=== PATIENT | male | born 1945 | race Caucasian/White ===

== ENCOUNTER → 2016-10-10 | Outpatient (CLI) | payer MEDICARE, OTHER ==
--- NOTE | 2016-10-11 07:30 | RAD ---
EXAM DESCRIPTION: XR CHEST 2 VIEWS CLINICAL HISTORY: Shortness of breath COMPARISON: 09/25/2012 TECHNIQUE: PA/lateral FINDINGS: Normal heart size. Cardiac surgery. Tortuous aorta. No pulmonary edema, infiltrates or effusions IMPRESSION: No acute cardiopulmonary process. Electronically signed by: Aries Jesus MD 10/11/2016 7:30 AM CDT
== END | disposition home or self-care (01) ==
LOC: RAD 11:06
PROVIDERS: ATTEND Internal Medicine
DX: R06.02 Shortness of breath (principal)

== ENCOUNTER → 2016-12-27 | Outpatient (CLI) | payer MEDICARE, OTHER | LOC: YCFC.O 10:01 | PROVIDERS: ATTEND Nurse Practitioner Family | DX: E11.9 Type 2 diabetes mellitus without complications (principal); E78.2 Mixed hyperlipidemia; I25.812 Atherosclerosis of bypass graft of coronary artery of transplanted heart without angina pectoris; Z12.5 Encounter for screening for malignant neoplasm of prostate | CPT/HCPCS: 36415; 80053; 80061; 83036; 85025; G0103 ==

== ENCOUNTER → 2017-02-10 | Outpatient (CLI) | payer MEDICARE, OTHER ==
--- NOTE | 2017-02-11 20:48 | RAD ---
EXAM DESCRIPTION: Chest,2 Views CLINICAL HISTORY: 71 years Male ABNORMAL BREATH SOUNDS R09.89 COMPARISON: 10/10/2016 FINDINGS: The cardiomediastinal silhouette appears unremarkable. No consolidating infiltrates or pleural effusions. No pneumothorax. Elevation of the right hemidiaphragm which is unchanged with a small amount of atelectasis in the right lung base, also stable. Median sternotomy wires are present. IMPRESSION: No acute abnormality is identified. Electronically signed by: Paige Sawyer 02/11/2017 8:47 PM CDT
== END | disposition home or self-care (01) ==
LOC: YCFC.O 14:35
PROVIDERS: ATTEND Nurse Practitioner Family
DX: R09.89 Other specified symptoms and signs involving the circulatory and respiratory systems (principal)

== ENCOUNTER → 2017-10-18 | Outpatient (CLI) | payer MEDICARE, OTHER | LOC: YCFC.O 09:38 | PROVIDERS: ATTEND Nurse Practitioner Family | DX: E11.39 Type 2 diabetes mellitus with other diabetic ophthalmic complication (principal); R06.02 Shortness of breath; E78.00 Pure hypercholesterolemia, unspecified; I10 Essential (primary) hypertension ==

== ENCOUNTER → 2018-11-19 | Outpatient (CLI) | payer MEDICARE, OTHER | LOC: LAB.O 09:27 | PROVIDERS: ATTEND Nurse Practitioner Family | DX: E11.9 Type 2 diabetes mellitus without complications (principal); I10 Essential (primary) hypertension; E78.2 Mixed hyperlipidemia; Z12.5 Encounter for screening for malignant neoplasm of prostate | CPT/HCPCS: 36415; 80053; 80061; 83036; 85025; G0103 ==

== ENCOUNTER 2020-07-04 17:47 | Emergency (ER) | payer MEDICARE, OTHER ==
[2020-07-04] MEDS ORDERED: MAGNESIUM HYDROXIDE 30 ML UD PO ONE (18:41)
--- NOTE | 2020-07-04 18:45 | ED.PDOC ---
History of Present Illness - General Chief Complaint: GI Problem Stated Complaint: constipation Time Seen by Provider: 07/04/20 17:54 Source: patient Exam Limitations: no limitations - History of Present Illness Initial Comments: The patient is a 75-year-old male presented emergency room secondary to difficulty having bowel movements for the last 2 to 3 days. He reports he has been straining with some difficulty. He has tried a couple suppositories. No vomiting. No nausea. No real abdominal pain just a feeling of fullness. Timing/Duration: other - 2 to 3 days Severity: moderate Improving Factors: nothing Worsening Factors: nothing Associated Symptoms: denies symptoms Allergies/Adverse Reactions: Allergies NO KNOWN ALLERGY Allergy (Unverified 09/25/12 00:32) Home Medications: Ambulatory Orders Alprazolam [Xanax] 1 mg PO BEDTIME 09/28/12 Escitalopram Oxalate [Lexapro] 20 mg PO DAILY 09/28/12 Human Insulin Aspart [Novolog] 38 unit SUBCU TID 09/28/12 Insulin Glargine [Lantus] 66 unit SC HS 09/28/12 Metoprolol Succinate [Toprol Xl] 50 mg PO BID 09/28/12 Amlodipine Besylate 2.5 mg PO BEDTIME 07/04/20 Aspirin [Aspirin Adult Low Dose] 81 mg PO DAILY 07/04/20 Escitalopram [Lexapro] 10 mg PO BEDTIME 07/04/20 Isosorbide Mononitrate [Imdur] 30 mg PO DAILY 07/04/20 Olmesartan Medoxomil [Benicar] 20 mg PO BEDTIME 07/04/20 Rosuvastatin Calcium [Crestor] 10 mg PO DAILY 07/04/20 Review of Systems - Review of Systems Constitutional: States: no symptoms reported EENTM: States: no symptoms reported Respiratory: States: no symptoms reported Cardiology: States: no symptoms reported Gastrointestinal/Abdominal: States: see HPI Genitourinary: States: no symptoms reported Musculoskeletal: States: no symptoms reported Skin: States: no symptoms reported Neurological: States: no symptoms reported Endocrine: States: no symptoms reported All other Systems: No Change from Baseline Past Medical History (General) - Patient Medical History Hx Stroke: No Hx Cardiac Disorders: Yes Hx Congestive Heart Failure: No Hx Diabetes: Yes Surgical History: appendectomy, cholecystectomy, coronary bypass surgery - Vaccination History Hx Influenza Vaccination: Yes Hx Pneumococcal Vaccination: Yes - Social History Hx Tobacco Use: Yes Family Medical History - Family History Father Family History: Unknown Living Status: Unknown Physical Exam - Physical Exam General Appearance: Alert, No apparent distress Eye Exam: bilateral normal Ears, Nose, Throat: hearing grossly normal, normal pharynx Neck: full range of motion, supple Respiratory: lungs clear, normal breath sounds, no respiratory distress, no accessory muscle use Cardiovascular/Chest: normal peripheral pulses, no edema, other - Regular rate Peripheral Pulses: radial,right: 2+, radial,left: 2+ Gastrointestinal/Abdominal: non tender, soft Rectal Exam: other - Rectal exam shows a hard mass of stool in the rectal vault which is broken up digitally as best I was able Extremity: normal range of motion, non-tender, normal inspection, no pedal edema, normal capillary refill 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 He is not obstructed at this point. The patient was digitally disimpacted. He was given a dose of milk of magnesia and a dose of Amitiza. He needs to increase his fluid intake and he needs to start taking MiraLAX 17 g daily for at least the next week. X-ray confirmed constipation. No evidence of perforation. ER warnings are given. Keep routine follow-up with primary care doctor otherwise. johny butts [phone] - Results/Orders Results/Orders: X-ray of the abdomen is limited however there is no evidence of any obstruction. There is moderate constipation. Chronic changes otherwise. See report for details. Departure - Departure Clinical Impression: Fecal impaction in rectum Disposition: Discharge to Home or Self Care Condition: Fair Departure Forms: ED Discharge - Pt. Copy, Patient Portal Self Enrollment Instructions: Fecal Impaction, Constipation, Adult (DC) Diet: other - High-fiber diet Activity: increase activity as tolerated Home Medications: Ambulatory Orders Alprazolam [Xanax] 1 mg PO BEDTIME 09/28/12 Escitalopram Oxalate [Lexapro] 20 mg PO DAILY 09/28/12 Human Insulin Aspart [Novolog] 38 unit SUBCU TID 09/28/12 Insulin Glargine [Lantus] 66 unit SC HS 09/28/12 Metoprolol Succinate [Toprol Xl] 50 mg PO BID 09/28/12 Amlodipine Besylate 2.5 mg PO BEDTIME 07/04/20 Aspirin [Aspirin Adult Low Dose] 81 mg PO DAILY 07/04/20 Escitalopram [Lexapro] 10 mg PO BEDTIME 07/04/20 Isosorbide Mononitrate [Imdur] 30 mg PO DAILY 07/04/20 Olmesartan Medoxomil [Benicar] 20 mg PO BEDTIME 07/04/20 Rosuvastatin Calcium [Crestor] 10 mg PO DAILY 07/04/20 Additional Instructions: The patient is a 75-year-old male presenting to the emergency room secondary to constipation and a mild fecal impaction. He is not obstructed at this point. The patient was digitally disimpacted. He was given a dose of milk of magnesia and a dose of Amitiza. He needs to increase his fluid intake and he needs to start taking MiraLAX 17 g daily for at least the next week. X-ray confirmed constipation. No evidence of perforation. ER warnings are given. Keep routine follow-up with primary care doctor otherwise.
[2020-07-04 19:05] VITALS: BP 162/74; TEMP 98.7; O2SAT 95
--- NOTE | 2020-07-04 19:09 | RAD ---
EXAM DESCRIPTION: Abdomen Flat Upright 07/04/2020 7:06 PM [employer] CLINICAL HISTORY: 75 years, Male, constipation COMPARISON: None FINDINGS: 2 X-ray views of the of the abdomen (supine and erect) were performed. The study is severely compromised due to incomplete evaluation/inclusion of the bowel/abdomen and the field of imaging. The gas pattern is nondiagnostic. No signs of ileus or obstruction. No free air under the diaphragm is noted. Clips within the gallbladder fossa corresponding to previous cholecystectomy. No evidence for significant major organomegaly. No abnormal calcifications are seen. The bone windows demonstrate minimal degenerative changes. IMPRESSION: NONDIAGNOSTIC GAS PATTERN. NO SIGNS OF OBSTRUCTION OR ILEUS. STATUS POST CHOLECYSTECTOMY. MINIMAL DEGENERATIVE CHANGES LUMBAR SPINE. Electronically signed by: Phan Patrick MD 07/04/2020 7:07 PM [employer]
[2020-07-04] MEDS ORDERED: LUBIPROSTONE 24 MCG CAP PO ONE (19:10)
== END 2020-07-04 19:00 | disposition home or self-care (01) ==
LOC: ER 17:47
DX: K56.41 Fecal impaction (principal); E11.9 Type 2 diabetes mellitus without complications; I51.9 Heart disease, unspecified; Z95.1 Presence of aortocoronary bypass graft; Z90.49 Acquired absence of other specified parts of digestive tract; Z87.891 Personal history of nicotine dependence; Z79.899 Other long term (current) drug therapy; Z79.4 Long term (current) use of insulin